=== PATIENT | female | born 1955 | race Caucasian/White ===

== ENCOUNTER 2016-10-03 08:15 | Day surgery (SDC) | payer OTHER ==
[~2016-10-03 08:15] MED LIST: Buffered Lidocaine 0.9% SYRIN* 5 ML/SYR SYRINGE INTRADERM ONE
[2016-10-03] MEDS ORDERED: ceFAZolin 2 GM PREMIX(*) 2 GM/50 ML BAG IVPB ONE (08:43)
[2016-10-03] MEDS ORDERED: Buffered Lidocaine 0.9% SYRIN* 5 ML/SYR SYRINGE ONE (08:57)
[2016-10-03] MEDS ORDERED: Lidocaine 1% INJ* 10 MG/ML 30 ML SDV ONE (09:34)
[2016-10-03] MEDS ORDERED: Dexamethasone IV* 4 MG/ML 1 ML (4 MG) ONE (09:34)
[2016-10-03] MEDS ORDERED: Propofol* 10 MG/ML 20 ML BTL IV PUSH ONE ×2 (09:35→10:36)
[2016-10-03] MEDS ORDERED: Midazolam* 1 MG/ML 2 ML VIAL (2 MG) ONE ×2 (09:35→10:19)
[2016-10-03] MEDS ORDERED: Bupivacaine 0.5% SDV PF* 30 ML VIAL ONE (09:35)
[2016-10-03] MEDS ORDERED: fentaNYL* 50 MCG/ML 2 ML VIAL (100 MCG VIAL) ONE (09:35)
[2016-10-03] MEDS ORDERED: Lidocaine 2% PF * 5 ML VIAL ONE (10:36)
[2016-10-03] MEDS ORDERED: fentaNYL* 50 MCG/ML 2 ML VIAL (100 MCG VIAL) IV PRN (11:14)
[2016-10-03] MEDS ORDERED: Ondansetron INJ* 2 MG/ML VIAL IV PRN (11:14)
[2016-10-03 11:50] VITALS: BP 139/98
--- NOTE | 2016-10-04 04:21 | OP ---
DATE OF OPERATION: 10/03/16 - [facility] DATE OF : 51 SURGEON: Ernesto Charles DPM RN PICU: None. ANESTHESIOLOGIST: Ras Monaco MD ANESTHESIA: MAC and local. PRE-OP DIAGNOSES: 1. Painful bunion deformity with hallux limitus, right foot. 2. Painful bunion talus bunion deformity, right foot. POST-OP DIAGNOSES: 1. Painful bunion deformity with hallux limitus, right foot. 2. Painful bunion talus bunion deformity, right foot. OPERATIVE PROCEDURE: 1. Bunionectomy with first metatarsal osteotomy and phalangeal osteotomy in right foot. 2. Talus bunionectomy, right foot. 3. Fifth metatarsal osteotomy, right foot. PATHOLOGY: Degenerative bone. HEMOSTASIS: Pneumatic ankle tourniquet. MATERIALS: Two of the 3.0 cannulated [place] screws and one 2.0 mm cannulated [place] screw. INDICATIONS: The patient has chronic right forefoot pain and deformity with bunion, hallux limitus and talus bunion causing pain in all shoes and while walking. The patient opts for surgery at this time to reduce pain and improve function. DESCRIPTION OF PROCEDURE: The patient was brought to the operating room, placed on the operating room table in a supine position. The anesthesia department administered IV sedation and peripheral nerve block was performed about the right foot with a 1:1 mixture of 1% lidocaine plain and 0.5% Marcaine plain. Right foot was then prepped and draped in usual fashion. An Esmarch bandage was utilized to exsanguinate the right foot and a pneumatic ankle tourniquet was inflated to 250 mmHg above a well-padded right ankle. Attention was directed to the dorsomedial aspect of the right great toe, where a curvilinear incision was made. The incision was deepened through the subcutaneous tissues with care being taken to retract neurovascular structures and cauterize superficial bleeders as needed. A linear periosteal and capsular incision was made, and this was also extended medially at the level of metatarsophalangeal joint. This allowed for exposure of the joint. There was noted to be some partial thickness, cartilaginous erosions at the central distal aspect of the first metatarsal head encompassing the area of approximately 0.2 x 0.3 cm. There were no loose fragments or loose cartilage found. There was hypertrophic bone at the medial aspect of the first metatarsal head. Next, a lateral release was performed in the first metatarsal space and the extensor hallucis brevis tendon was also identified and transacted. A McGlamry elevator was used to gently carefully free the plantar lateral adhesions of the sesamoids. The medial eminence was resected with sagittal saw in a manner to preserve the sagittal groove. A Chevron type osteotomy was performed with the apex just dorsal and proximal to the geometric center. The plantar wound was cut from medial to lateral and then the dorsal wing was cut. The capital fragment transposed laterally to correct the position. Temporary fixation was achieved with the wire from screw set. The position was assessed with the C-arm. Using standard technique, he had 3.0 mm cannulated placed across the osteotomy site with care being taken to ensure that tip of the screw did not penetrate the joint. Temporary fixation was removed. The osteotomy was inspected and found to be solid. No detectable motion or gaping. The screws were 2 fingers tight. The fixation and correction was assessed with C-arm. A redundant medial shelf of bone was resected and a power so was used to smooth the rough edges. Next, a phalangeal osteotomy was performed from distal medial to more proximal lateral with a distal medial wedge bone resected. The osteotomy was reduced and temporary fixation was achieved with a K-wire from the screw set and position was assessed with the C-arm and using standard technique, a 3.0 mm cannulated screw was placed across the osteotomy site. Temporary fixation was removed and fixation was assessed with C-arm. The osteotomy was found to be solid. No detectable motion or gaping. The screws were 2 fingers tight. Medial capsulorrhaphy was performed resecting redundant medial capsule. The surgical site was flushed with copious amounts of normal sterile saline. While holding hallux in rectus position, the periosteal and capsular tissues were reapproximated and secured with 2-0 Polysorb. Subcutaneous tissues were approximated and secured with 4-0 Polysorb and skin was reapproximated and secured with 5-0 nylon. Attention was directed to the dorsal lateral aspect of the fifth metatarsophalangeal joint, where a curvilinear incision was made. The incision was deepened through subcutaneous tissues with care being taken to retract neurovascular structures and cauterize superficial bleeders as needed. The linear periosteal and capsular incision was made to allow for exposure of the distal fifth metatarsal. Contractures were released medially and the hypertrophic bone of the lateral aspect of the fifth metatarsal head was resected with a sagittal saw. Next, a modified short Z-type osteotomy was performed in the distal third of the fifth metatarsal. This transposed medially to correct the position until fixation was achieved with a wire from screw set. The position was assessed with C-arm. Using standard technique, a 2.0 mm cannulated Natalia screw was placed across the osteotomy site. Temporary fixation was removed and the osteotomy was inspected and found to be solid with no detectable motion or gaping. The redundant bone laterally was reduced with sagittal saw and burred smooth. The surgical site was flushed with copious amounts of normal sterile saline. The periosteal and capsular tissues were reapproximated and secured with 4-0 Polysorb and subcutaneous tissues were reapproximated with 4-0 Polysorb and skin was reapproximated and secured with 5-0 nylon. 12 mg total of dexamethasone phosphate in total was infiltrated about the surgical sites. Both incisions were dressed with Xeroform gauze and light compressive dressing consisting of sterile 4x4 gauze, Moon, and light Coban wrap. Pneumatic ankle tourniquet was deflated about the right ankle and a prompt hyperemic response was noted in all 5 digits of the patient's right foot. Having appeared to tolerate the procedure and the anesthesia well, the patient was transported via cart from the operating room to Recovery in satisfactory condition with capillary refill less than 3 seconds to all digits of the right foot. [id number]/[facility] #: [id number] YENNY
== END 2016-10-03 12:15 | disposition home or self-care (01) ==
LOC: OREAST 08:15
PROVIDERS: ATTEND Podiatrist Foot Surgery
DX: M21.611 Bunion of right foot (principal); M21.621 Bunionette of right foot; I65.23 Occlusion and stenosis of bilateral carotid arteries; I34.0 Nonrheumatic mitral (valve) insufficiency; F17.210 Nicotine dependence, cigarettes, uncomplicated; E55.9 Vitamin D deficiency, unspecified
CPT/HCPCS: 76000; C1713; C1776; J0690; J1100; J2001; J2250; J2704; J3010

== ENCOUNTER 2017-03-13 07:47 | Emergency (ER) | payer OTHER ==
[2017-03-13 07:59] VITALS: BP 147/75
--- NOTE | 2017-03-13 08:18 | UC ---
Truncal Trauma HPI - HPI Summary HPI Summary: 61 yo WF c/o right upper rib pains around posterior mid axillary line inferior to scapula. Pt fell on about 1.5 weeks ago, denies SOB. - History Of Current Complaint Chief Complaint: UCGeneralIllness Stated Complaint: FELL PAIN IN RIB AREA Time Seen by Provider: 03/13/17 08:07 ?: No Onset/Duration: Sudden Onset, Lasting Days, Still Present Severity Initially: Moderate Severity Currently: Moderate - Allergies/Home Medications Allergies/Adverse Reactions: Allergies Allergy/AdvReac Type Severity Reaction Status Date / Time No Known Allergies Allergy Verified 03/13/17 07:55 PMH/Surg Hx/FS Hx/Imm Hx Previously Healthy: Yes - Surgical History Surgical History: Yes Surgery Procedure, Year, and Place: cyst removed off rt overy - Social History Alcohol Use: Daily Alcohol Amount: 3 BEERS EACH NIGHT Substance Use Type: None Smoking Status (MU): Light Every Day Tobacco Smoker Amount Used/How Often: 1/2 PPD FOR 40 YEARS Review of Systems Constitutional: Negative Skin: Negative Eyes: Negative ENT: Negative Respiratory: Negative Cardiovascular: Negative Gastrointestinal: Negative Genitourinary: Negative Motor: Negative Neurovascular: Negative Musculoskeletal: Other: - see HPI Neurological: Negative Psychological: Negative All Other Systems Reviewed And Are Negative: Yes Physical Exam Triage Information Reviewed: Yes Vital Signs: Initial Vital Signs Temp 37.0 C 03/13/17 07:56 Pulse 89 03/13/17 07:56 Resp 16 03/13/17 07:56 BP 147/75 03/13/17 07:56 Pulse Ox 100 03/13/17 07:56 Eye Exam: Normal ENT Exam: Normal Dental Exam: Normal Neck exam: Normal Neck: Positive: 1 Respiratory Exam: Normal Cardiovascular Exam: Normal Abdominal Exam: Normal Musculoskeletal: Positive: Other: - TTP region of rib 4&5 and ICS right post axillary/inf scapular area, NO bony tendeness Psychological Exam: Normal Skin Exam: Normal Truncal Trauma Course/Dx - Course Course Of Treatment: XR neg for fx pr PTX - Differential Dx/Diagnosis Provider Diagnoses: chest wall contusion Discharge - Discharge Plan Condition: Stable Disposition: HOME Patient Education Materials: Rib Contusion (ED) Referrals: Jewell Unger MD [Primary Care Provider] - Additional Instructions: as tolerated, no heavy lifting, NSAIDS for pain, manual splinting for cough sneezing
--- NOTE | 2017-03-13 09:29 | RAD ---
HISTORY: Subacute trauma, right-sided chest pain COMPARISONS: None relevant VIEWS: 4, Frontal view of the chest with frontal and oblique views of the right hemithorax. FINDINGS: There is no displaced rib fracture or pneumothorax. The visualized lungs are clear. IMPRESSION: NO DISPLACED RIB FRACTURE OR PNEUMOTHORAX.
== END 2017-03-13 09:37 | disposition home or self-care (01) ==
LOC: UCEAST 07:47
DX: S20.219A Contusion of unspecified front wall of thorax, initial encounter (principal); W19.XXXA Unspecified fall, initial encounter; Y93.9 Activity, unspecified; Y92.9 Unspecified place or not applicable; Z72.89 Other problems related to lifestyle; Z72.0 Tobacco use
CPT/HCPCS: 99211; G0463